=== PATIENT | female | born 1955 | race American Indian/Alaskan Native ===

== ENCOUNTER 2019-02-07 07:03 | Day surgery (SDC) | payer MEDICARE, MEDICAID ==
[~2019-02-07] VITALS: Ht 164.5 cm; Wt 159.1 kg
[2019-02-07 07:15] VITALS: BP 148/100
[2019-02-07] MEDS ORDERED: GLYB5TAB7 PO (07:34)
[2019-02-07] MEDS ORDERED: LIRA0.6P SQ (07:35)
[2019-02-07] MEDS ORDERED: FURO-150 PO (07:36)
[2019-02-07] MEDS ORDERED: INSU100I31 SQ (07:36)
[2019-02-07] MEDS ORDERED: ATOR10TA70 PO (07:37)
[2019-02-07] MEDS ORDERED: DILT240C33 PO (07:38)
[2019-02-07] MEDS ORDERED: IRON118L2 PO (07:39)
[2019-02-07] MEDS ORDERED: POTA8CAP20 PO (07:39)
[2019-02-07] MEDS ORDERED: MAGN500C16 PO (07:40)
[2019-02-07] MEDS ORDERED: KRIL1CAP18 PO (07:41)
[2019-02-07] MEDS ORDERED: MULT9LIQ6 PO (07:42)
[2019-02-07] MEDS ORDERED: ASPI-1264 PO (07:42)
[2019-02-07] MEDS ORDERED: MIDAZolam 5mg/5ml vial ONE (07:46)
[2019-02-07] MEDS ORDERED: fentaNYL/PF 50MCG/1 ML 2ML syringe ONE (07:46)
[2019-02-07 09:49] VITALS: BP 153/82
[2019-02-07 09:59] VITALS: BP 113/66
[2019-02-07 10:09] VITALS: BP 125/67
[2019-02-07 10:25] VITALS: BP 124/55
== END 2019-02-07 10:30 | disposition home or self-care (01) ==
LOC: GI LAB 07:03
PROVIDERS: ATTEND Internal Medicine Gastroenterology
DX: Z12.11 Encounter for screening for malignant neoplasm of colon (principal); K64.8 Other hemorrhoids; D12.2 Benign neoplasm of ascending colon; K62.1 Rectal polyp; Z80.0 Family history of malignant neoplasm of digestive organs; Z86.010 Personal history of colon polyps; K57.30 Diverticulosis of large intestine without perforation or abscess without bleeding
CPT/HCPCS: 45380; 45381; 45385; C1773; J2250; J3010; J7040; 88305; 99152; 99153; A4620; G0500